=== PATIENT | female | born 1980 | race Hispanic/Latino ===

== ENCOUNTER 2016-11-12 07:13 | Emergency (ER) | payer OTHER ==
[~2016-11-12] VITALS: Ht 165.1 cm; Wt 82.6 kg
[~2016-11-12 07:13] MED LIST: ADVAIR DISKUS 21 DSK INH; ADVAIR DISKUS1 UNIT INH; ALBUTEROL2.5 MG/3 M INH/SOL; AMBIEN (MONOGRAP5 MG PO; ANUSOL-HC25 MG PR; ATHLETE'S FOOT1% TOP; BENTYL20 MG PO; BENZONATATE100 M1 PO; CEPHALEXIN500 M3 PO; CEVIMELINE HCL30 M1 PO; CHLORASEPTI1 LOZ/PAC PO; CYCLOBENZAPRINE10 M1 PO; CYCLOBENZAPRINE10 M3 PO; CYCLOBENZAPRINE10 MG PO; DIAZEPAM10 MG PO; DIAZEPAM5 MG PO; DICYCLOMINE HCL20 MG PO; DILAUDID2 M1 PO; EPIPEN ADULT A0.3 MG IM; FENTANYL TR50 MCG/HR TOP; HYGROTON 25MG T25 MG PO; IBUPROFEN800 M1 PO; LANTUS SOLOS100 U/ML SC; LEVOFLOXACIN500 M1 PO; LIDODERM 5% PAT1 PAT EXT; LIDODERM 5% PAT1 PAT TOP; LINZESS290 MCG PO; MASON NATURAL2000 IU PO; MEDROL DOSEPAK1 PAC PO; METFORMIN ER500 MG; METFORMIN HYDR500 M1 PO; METOCLOPRAMIDE10 MG PO; MIRALAX17 GM PO; MORPHINE SULFAT15 MG PO; MOTRIN800 MG PO; MOVANTIK25 M1 PO; MOVANTIK25 MG PO; MUCINEX ER600 MG PO; NAPROSYN500 M1 PO; NEURONTIN100 MG PO; OXYCODONE HYDRO30 MG PO; PANTOPRAZOLE SO40 MG PO; PERCOCET 325 MG1 TA2 PO; PERCOCET 5-3251 EACH PO; POLYTRIM EYE DR10 ML OPH; PREDNISONE 20MG20 MG PO; PREDNISONE10 M2 PO; PREDNISONE10 MG PO; PROAIR HFA8.5 GM INH; PROCTOFOAM-HC 11 FOA RC; PROMETHAZINE HC25 M3 PO; PROMETHAZINE V118 M2 PO; RELISTOR 112 MG/0.6 SC; ROBITUSSIN W/CO10 ML PO; SEROQUEL 25MG25 MG PO; SINGULAIR10 MG; SPIRIVA 18 MCG18 MCG INH; SUMATRIPTAN SU100 MG PO; TAMIFLU 75MG75 MG PO; TESSALON PERLE100 M1 PO; TESSALON PERLE100 MG PO; TOPAMAX200 M1 PO; TOPAMAX25 MG PO; TRAMADOL HCL50 M1 PO; VENLAFAXINE H37.5 M1 PO; VENLAFAXINE HC150 MG PO; VITAMIN D50000 IU PO; ZOFRAN ODT4 M1 SL; ZOFRAN ODT4 MG PO; ZOFRAN4 M1 PO; ZOFRAN4 M1 SL
--- NOTE | 2016-11-12 07:51 | ED INFLUENZA/URI COMPLAINT ---
History of Present Illness General Chief Complaint: Upper Respiratory Sx/Fever Stated Complaint: URI/LFT EAR PAIN Source: patient Exam Limitations: no limitations Vital Signs & Intake/Output Vital Signs & Intake/Output Vital Signs Date Time Temp Pulse Resp B/P Pulse O2 O2 Flow FiO2 Ox Delivery Rate 11/12 0903 97.4 88 19 112/72 99 Room Air 11/12 0718 97.8 105 18 110/78 97 Room Air Room Air Allergies Coded Allergies: NO KNOWN ALLERGIES (06/15/16) Reconcile Medications Albuterol Sulfate (Accuneb) 3 ML LALITHA RESPIRATORY (Reported) Albuterol Sulfate (Proair Hfa) 0.09 MG/Actuation NISREEN 2 PUFF INH PRN ASTHMA ( Reported) Cevimeline HCl 30 MG CAPSULE 1 CAP PO TID DRY MOUTH (Reported) Chlorthalidone (Hygroton 25MG Tablet) 25 MG TAB 1 TAB PO DAILY WATER PILL ( Reported) Cyclobenzaprine HCl 10 MG TABLET 1 TAB PO QPM PRN MUSCLE SPASM Diazepam 10 MG TAB 1 TAB PO TID MUSCLE SPASMS (Reported) Epinephrine (Epipen 2-Anibal) 0.3 MG KIT 0.3 MG IM AD PRN ANAPHYLAXIS (Reported) ERGOCALCIFEROL (VITAMIN D2) (Vitamin D2) 50,000 UNIT CAPSULE 1 CAP PO QW ARTHRITIS (Reported) Fentanyl (Fentanyl Transdermal System) 50 MCG/HR TDM 1 EVERETT TOP Q72 PAIN ( Reported) Fluticasone-Salmeterol (Advair 500-50 Diskus) 1 UNIT UNIT 1 PUF INH BID ASTHMA (Reported) HYDROCORTISONE/PRAMOXINE (Proctofoam-Hc 1%-1% Foam) 1 %-1 % FOAM 1 A RC TID PRN HEMORRHOIDS Hydromorphone HCl (Dilaudid) 2 MG TABLET 1 TAB PO 4XDP PRN PAIN Linaclotide (Linzess) 290 MCG CAP 1 CAP PO DAILY GI (Reported) Montelukast Sodium (Singulair) (Unknown Strength) TAB (Unknown Dose) UNKNOWN (Reported) Morphine Sulfate 15 MG TAB 1 TAB PO BID PAIN (Reported) Naloxegol Oxalate (Movantik) 25 MG TABLET 1 TAB PO DAILY GI (Reported) Ondansetron (Zofran Odt) 4 MG TAB.RAPDIS 1 TAB SL TID PRN nausea OXYCODONE HCL (Oxycodone Hydrochloride) 30 MG TABLET 1 TAB PO Q6 PRN PAIN ( Reported) Pantoprazole Sodium 40 MG TABLET.DR 1 TAB PO DAILY AC GI (Reported) Polyethylene Glycol 3350 (Miralax) 17 GRAM/DOSE POWDER 1 CAP PO BID PRN CONSTIPATION 1 CAP IN 8 OUNCE GLASS OF WATER/FLUID TWICE A DAY Promethazine HCl 25 MG TABLET 1 TAB PO Q6P PRN NAUSEA Sumatriptan Succinate 100 MG TABLET 1 TAB PO AD PAIN (Reported) may repeat in 2 hours; do not exceed 200 mg in 24 hours Tiotropium [place] (Spiriva) 18 MCG CAP 1 CAP INH DAILY ASTHMA (Reported) Topiramate (Topamax) 200 MG TABLET 1 TAB PO DAILY MIGRAINES (Reported) Tramadol HCl 50 MG TABLET 1 TAB PO BIDP PRN pain Venlafaxine HCl (Venlafaxine HCl ER) 150 MG CAP.ER.24H 1 CAP PO DAILY MENTAL HEALTH (Reported) Zolpidem Tartrate (Ambien) 5 MG TAB 1 TAB PO QPM SLEEP (Reported) Triage Note: TRIAGE: 36 Y/O FEMALE PRESENTS C/O 10/10 HEADACHE, LEFT EAR PAIN - INTERMITTENT SINCE YESTERDAY. ALSO C/O NAUSEA AND DIZZINESS. LAST DOSE MOTRIN (STRENGTH UNKNOWN) AT 0300. "BUT I STILL IN A LOT OF PAIN - IT DON'T GO AWAY." * REMAINS SEATED IN WHEELCHAIR FOR SAFETY. * MASK APPLIED IN TRIAGE FOR SAFETY. Triage Nurses Notes Reviewed? yes : No Patient currently breastfeeds: No HPI: Patient presents for evaluation of a severe left-sided headache that began at about 1:00 this morning. It is a severe constant headache consistent with prior migraines. Patient also states she is having a severe constant sharp left ear pain and left neck pain. Yesterday she had an episode of intermittent chest pains. She has had fever and cough but no phlegm production or nasal congestion. She denies any associated rashes. She tried Motrin yesterday without relief. Her daughter is currently ill with cold like symptoms. She denies any recent travel. She has a past medical history of rheumatoid arthritis, lupus, migraines, fibromyalgias and asthma. Past History Travel History Traveled to [place] past 21 day No Medical History Any Pertinent Medical History? 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 No Review of Systems Review of Systems Constitutional: Reports: no symptoms. EENTM: Reports: see HPI. Respiratory: Reports: no symptoms. Cardiovascular: Reports: no symptoms. GI: Reports: no symptoms. Genitourinary: Reports: no symptoms. Musculoskeletal: Reports: no symptoms. Skin: Reports: no symptoms. Neurological/Psychological: Reports: headache. Hematologic/Endocrine: Reports: no symptoms. Immunologic/Allergic: Reports: no symptoms. All Other Systems: Reviewed and Negative Physical Exam Physical Exam Ears, Nose, Throat: see below Comments: Gen.: Well-nourished, well-developed, no acute respiratory distress. Mild to moderate distress secondary to left headache. Head: Normocephalic, atraumatic. Eyes: Normal inspection bilaterally, PERRLA, EOMI Ears: Normal inspection bilaterally, TMs and canals normal bilaterally Nose: Normal inspection Face: Nontender to percussion Throat/mouth : Moist mucosa , no erythema or exudates Neck: Supple, full range of motion, no goiter Heart: Regular rate and rhythm, no murmurs rubs or gallops Lungs: Clear to auscultation bilaterally with normal air entry Chest: Nontender Back: Normal range of motion Abdomen: Soft, nontender, nondistended, normal bowel sounds Extremities: Normal range of motion grossly, equal radial pulses, no cyanosis clubbing or edema Neurologic: Cranial nerves grossly intact, speech is clear Skin: warm and dry, no rashes or erythema Psychiatric: Calm, cooperative, no apparent delusions or hallucinations Core Measures Severe Sepsis Present: No Septic Shock Present: No Progress Differential Diagnosis: influenza, meningitis, otitis, sinusitis, migraine fibromyalgia Plan of Care: Current Medications Sig/Alma Start time Last Medication Dose Stop Time Status Admin Ketorolac 60 MG ONCE ONE 11/12 814 UNVr Tromethamine 11/12 815 (Toradol) Promethazine HCl 25 MG ONCE ONE 11/12 814 UNVr (Phenergen) 11/12 815 Initial ED EKG: none Comments: 11/12/2016 10:14:58 AM patient stated that she did not receive significant relief after Toradol and Phenergan. The patient currently takes morphine oxycodone and fentanyl patch for her chronic medical conditions. She has been medicated with a dose of oxycodone and is currently asleep. Departure Departure Disposition: HOME OR SELF CARE Condition: Stable Clinical Impression Primary Impression: Migraine headache Qualifiers: Migraine type: chronic without aura Status migrainosus presence: with status migrainosus Intractability: not intractable Qualified Code: G43.701 - Chronic migraine without aura, not intractable, with status migrainosus Secondary Impressions: Otalgia of left ear, Viral syndrome Referrals: ZULLY KRAMER,Wandy ALONZO (PCP/Family) Additional Instructions: Go home and try to get some more sleep as this will likely breakthrough migraine headache. Follow-up with your primary care physician this week for reevaluation and for referral to a neurologist. [id number] cough and cold medication as necessary. Return if any concerns or sudden worsening. Departure Forms: Customer Survey General Discharge Information
[2016-11-12 09:03] VITALS: BP 112/72
== END 2016-11-12 10:24 ==
LOC: ERH 07:13
DX: G43.909 Migraine, unspecified, not intractable, without status migrainosus (principal); H92.02 Otalgia, left ear; B34.9 Viral infection, unspecified
CPT/HCPCS: 96372; J1885; J2550

== ENCOUNTER 2016-11-24 00:16 | Emergency (ER) | payer OTHER ==
[~2016-11-24] VITALS: Ht 175.3 cm; Wt 79.4 kg
--- NOTE | 2016-11-24 01:07 | ED GENERAL ADULT ---
See Addendum History of Present Illness General Chief Complaint: General Adult Stated Complaint: WEAKNESS, headache, dizziness Source: family Exam Limitations: unable to give history, in pain, mumbles Allergies Coded Allergies: NO KNOWN ALLERGIES (06/15/16) Reconcile Medications Albuterol Sulfate (Accuneb) 3 ML LALITHA RESPIRATORY (Reported) Albuterol Sulfate (Proair Hfa) 0.09 MG/Actuation NISREEN 2 PUFF INH PRN ASTHMA ( Reported) Cevimeline HCl 30 MG CAPSULE 1 CAP PO TID DRY MOUTH (Reported) Chlorthalidone (Hygroton 25MG Tablet) 25 MG TAB 1 TAB PO DAILY WATER PILL ( Reported) Cyclobenzaprine HCl 10 MG TABLET 1 TAB PO QPM PRN MUSCLE SPASM Diazepam 10 MG TAB 1 TAB PO TID MUSCLE SPASMS (Reported) Epinephrine (Epipen 2-Anibal) 0.3 MG KIT 0.3 MG IM AD PRN ANAPHYLAXIS (Reported) ERGOCALCIFEROL (VITAMIN D2) (Vitamin D2) 50,000 UNIT CAPSULE 1 CAP PO QW ARTHRITIS (Reported) Fentanyl (Fentanyl Transdermal System) 50 MCG/HR TDM 1 [place] TOP Q72 PAIN ( Reported) Fluticasone-Salmeterol (Advair 500-50 Diskus) 1 UNIT UNIT 1 PUF INH BID ASTHMA (Reported) HYDROCORTISONE/PRAMOXINE (Proctofoam-Hc 1%-1% Foam) 1 %-1 % FOAM 1 A RC TID PRN HEMORRHOIDS Hydromorphone HCl (Dilaudid) 2 MG TABLET 1 TAB PO 4XDP PRN PAIN Linaclotide (Linzess) 290 MCG CAP 1 CAP PO DAILY GI (Reported) Meclizine HCl 25 MG TABLET 1 TAB PO 4 TIMES/DAY PRN DIZZINESS / VERTIGO Montelukast Sodium (Singulair) (Unknown Strength) TAB (Unknown Dose) UNKNOWN (Reported) Morphine Sulfate 15 MG TAB 1 TAB PO BID PAIN (Reported) Naloxegol Oxalate (Movantik) 25 MG TABLET 1 TAB PO DAILY GI (Reported) Ondansetron (Zofran Odt) 4 MG TAB.RAPDIS 1 TAB SL 4 TIMES/DAY PRN NAUSEA Ondansetron (Zofran Odt) 4 MG TAB.RAPDIS 1 TAB SL TID PRN nausea OXYCODONE HCL (Oxycodone Hydrochloride) 30 MG TABLET 1 TAB PO Q6 PRN PAIN ( Reported) Pantoprazole Sodium 40 MG TABLET.DR 1 TAB PO DAILY AC GI (Reported) Polyethylene Glycol 3350 (Miralax) 17 GRAM/DOSE POWDER 1 CAP PO BID PRN CONSTIPATION 1 CAP IN 8 OUNCE GLASS OF WATER/FLUID TWICE A DAY Promethazine HCl 25 MG TABLET 1 TAB PO Q6P PRN NAUSEA Sumatriptan Succinate 100 MG TABLET 1 TAB PO AD PAIN (Reported) may repeat in 2 hours; do not exceed 200 mg in 24 hours Tiotropium [place] (Spiriva) 18 MCG CAP 1 CAP INH DAILY ASTHMA (Reported) Topiramate (Topamax) 200 MG TABLET 1 TAB PO DAILY MIGRAINES (Reported) Tramadol HCl 50 MG TABLET 1 TAB PO BIDP PRN pain Venlafaxine HCl (Venlafaxine HCl ER) 150 MG CAP.ER.24H 1 CAP PO DAILY MENTAL HEALTH (Reported) Zolpidem Tartrate (Ambien) 5 MG TAB 1 TAB PO QPM SLEEP (Reported) Triage Note: PT BIBA FOR SOB, NAUSEA, CHILLS AND GENERAL WEAKNESS. PT ON 2L O2 ON ARRIVAL. HX OF FIBROMYALGIA. PT SLOW TO RESPOND UPON ED ARRIVAL. Triage Nurses Notes Reviewed? yes Onset: Morning Duration: hour(s): Timing: single episode today Severity: severe : No Patient currently breastfeeds: No HPI: Patient is a 36 year old lady who is brought in by ambulance due to sudden onset of severe headache, dizziness, nausea and weakness. Patient is unable to articulate clearly due to pain and dizziness and history is given by her . Symptoms started this morning and subsided during the day but got worsened 1.5 ago before arriving to the ED in the form of dizziness, nausea and severe headache. patient also reported blurry vision and reported seeing stars. dizziness is positional and improved with siting upright and worsened with ling flat. 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 ([facility]) Vital Signs & Intake/Output Vital Signs & Intake/Output Vital Signs Date Time Temp Pulse Resp B/P Pulse O2 O2 Flow FiO2 Ox Delivery Rate 11/24 0537 98.3 100 18 129/83 98 Room Air 11/24 0031 98.4 85 24 129/88 98 Room Air Past History Travel History Traveled to [place] past 21 day No Medical History Any Pertinent Medical History? 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 Yes Sexual History Use of Protection No (DIEGO TOVAR MD) Review of Systems Review of Systems Constitutional: Reports: weakness. Denies: chills, fever. EENTM: Reports: blurred vision, visual changes. Denies: hearing changes. Respiratory: Denies: cough, short of breath. Cardiovascular: Denies: chest pain, palpitations. GI: Reports: abdominal pain, constipation (vague mid abdomen). Genitourinary: Reports: no symptoms. Musculoskeletal: Reports: neck pain. Skin: Reports: no symptoms. Neurological/Psychological: Reports: headache, weakness. Denies: numbness. Hematologic/Endocrine: Reports: no symptoms. (DIEGO TOVAR MD) Review of Systems Constitutional: Reports: no symptoms. EENTM: Reports: no symptoms. Respiratory: Reports: no symptoms. Cardiovascular: Reports: no symptoms. GI: Reports: no symptoms. Genitourinary: Reports: no symptoms. Musculoskeletal: Reports: no symptoms. Skin: Reports: no symptoms. Neurological/Psychological: Reports: no symptoms. Hematologic/Endocrine: Reports: no symptoms. Immunologic/Allergic: Reports: no symptoms. All Other Systems: Reviewed and Negative (ALLA KRAMER,ENRIQUE Enriquez) Physical Exam Physical Exam General Appearance: well developed/nourished, alert, awake, anxious, moderate distress Head: atraumatic, normal appearance Eyes: Bilateral: PERRL, EOMI. Ears, Nose, Throat: normal pharynx, normal ENT inspection Neck: normal inspection, supple, full range of motion Respiratory: normal breath sounds, chest non-tender, quiet respiration, shallow breaths Cardiovascular: regular rate/rhythm Peripheral Pulses: 2+ radial (R), 2+ radial (L) Gastrointestinal: normal bowel sounds, soft, non-tender Back: normal inspection, normal range of motion, no vertebral tenderness Extremities: normal inspection, normal capillary refill, normal range of motion, no edema Neurologic/Psych: no motor/sensory deficits, awake, alert, oriented x 3 Skin: intact Core Measures ACS in differential dx? No CVA/TIA Diagnosis: No Severe Sepsis Present: No Septic Shock Present: No (GUY KRAMER,DIEGO) Progress Differential Diagnoses I considered the following diagnoses in my evaluation of the patient: [attack of migraine headache, benign positinal vertigo, meniere disease, rule out SAH for severe headache] Initial ED EKG: NSR (GUY KRAMER,DIEGO) Plan of Care: Orders Procedure Date/time Status URINALYSIS 11/24 0403 Complete Add-on Test (ER Only) 11/24 0302 Active COMPREHENSIVE METABOLIC PANEL 11/24 0119 Complete TROPONIN LEVEL 11/24 0050 Complete HUMAN BETA HCG SCREEN 11/24 0050 Complete CBC WITHOUT DIFFERENTIAL 11/24 0050 Complete EKG 11/24 0050 Active Current Medications Sig/Alma Start time Last Medication Dose Stop Time Status Admin Sumatriptan Succinate 6 MG ONE ONE 11/24 0500 CAN (Imitrex 6MG Per 11/24 0501 0.5ML Inj) Laboratory Tests 11/24/16 0400: Urinalysis LIGHT H, Urine Color YEL, Urine Clarity CLEAR, Urine pH 7.0, Ur Specific [place] 1.010, Urine Protein NEG, Urine Ketones NEG, Urine Nitrite NEG, Urine Bilirubin NEG, Urine Urobilinogen 0.2, Ur Leukocyte Esterase SMALL H, Ur Microscopic SEDIMENT EXAMINED, Urine WBC 3-5 H, Ur Epithelial Cells FEW, Urine Mucus FEW, Urine Hemoglobin NEG, Urine Glucose NEG 11/24/16 0119: Anion Gap 14, Estimated GFR > 60, BUN/Creatinine Ratio 20.0, Glucose 105 H, Calcium 9.5, Total Bilirubin 0.3, AST 22, ALT 32, Alkaline Phosphatase 94, Troponin I < 0.01, Total Protein 7.9, Albumin 3.9, Globulin 4.0, Albumin/ Globulin Ratio 1.0 L, Total Beta HCG NEGATIVE 11/24/1649: CBC w Diff NO MAN DIFF REQ, RBC 5.08, MCV 82.3, MCH 27.3, RDW 15.2 H, MPV 8.6, Gran % 61.9, Lymphocytes % 31.6, Monocytes % 4.2, Eosinophils % 1.9, Basophils % 0.4, Absolute Granulocytes 6.1, Absolute Lymphocytes 3.1, Absolute Monocytes 0.4 , Absolute Eosinophils 0.2, Absolute Basophils 0, PUBS MCHC 33.2 Diagnostic Imaging: Viewed by Me: CT Scan. Discussed w/RAD: CT Scan. Radiology Impression: head ct... no acute disease... full report below. Comments: PATIENT: SAL CHA PRESENT AGE: 36 PATIENT ACCOUNT NO: [id number] : 80 LOCATION: [facility] ORDERING PHYSICIAN: DIEGO TOVAR MD SERVICE DATE: 11/24/16 EXAM TYPE: CAT - CT HEAD WO IV CONTRAST EXAMINATION: CT HEAD WITHOUT CONTRAST CLINICAL INFORMATION: Rule out space-occupying lesions. COMPARISON: None available at the time of dictation. TECHNIQUE: Contiguous axial imaging was performed from the skull base to vertex without intravenous administration of contrast. FINDINGS: There is streak artifact from a left-sided earring. There is no definite intracranial hemorrhage. No hydrocephalus, extra-axial surface collection, midline shift, or other herniation pattern. Spangler to white matter differentiation is diffusely maintained without evidence of an evolved acute territorial infarct. The basilar cisterns are preserved. No significant soft tissue abnormality. No acute osseous abnormality. The paranasal sinuses and the mastoid air cells are well-aerated. IMPRESSION: No definite acute intracranial findings. Assessment is limited by artifact from a left-sided earring. DICTATED BY: REBECCA BRITT MD DATE/TIME DICTATED:11/24/16324 CASTING ROOM HELPER:JOE DATE/TIME TRANSCRIBED:11/24/16324 CONFIDENTIAL, DO NOT COPY WITHOUT APPROPRIATE AUTHORIZATION. <Electronically signed in Other Vendor System> SIGNED BY: REBECCA BRITT MD 11/24/16 0333 (ALLA KRAMER,ENRIQUE Enriquez) Departure Departure Time of Disposition: 517 Disposition: HOME OR SELF CARE Condition: Stable Clinical Impression Primary Impression: SAH (subarachnoid hemorrhage) Ruled Out Impressions: Migraine aura without headache Referrals: BAHMAN KRAMER,THOMAS (PCP/Family) Departure Forms: Customer Survey General Discharge Information Prescriptions: Current Visit Scripts Meclizine HCl 1 TAB PO 4 TIMES/DAY PRN DIZZINESS / VERTIGO #30 TAB Ref 1 Ondansetron (Zofran Odt) 1 TAB SL 4 TIMES/DAY PRN NAUSEA #30 TAB Ref 1 (GUY KRAMER,DIEGO) Departure Comments 11/24/16, 4:10am... discussed with patient.... she has mild frontal headache. Her nausea and vertigo have resolved. 11/24/16, 5:34am... pt stable for discharge... feeling better after supportive medications. Pt shared also that she ran out of some of her pain medications. Resident Co-Sign Statement Statement: ED Attending supervision documentation- [x] I saw and evaluated the patient. I have also reviewed all the pertinent lab results and diagnostic results. I agree with the findings and the plan of care as documented in the Resident's documentation. [] I have reviewed the ED Record and agree with the Resident's documentation. [] Additions or exceptions (if any) to the Resident's note and plan are summarized below: [] (ALLA KRAMER,ENRIQUE Enriquez) Critical Care Note Critical Care Note Critical Care Time: non-applicable (ALLA KRAMER,ENRIQUE Enriquez)
[2016-11-24 03:08] LABS: ABSOLUTE BASOPHIL COUNT 0 /CUMM (0.0-0.2); ABSOLUTE EOSINOPHIL COUNT 0.2 /CUMM (0.0-0.7); ABSOLUTE GRANULOCYTE CT 6.1 /CUMM (1.4-6.5); ABSOLUTE LYMPH COUNT 3.1 /CUMM (1.2-3.4); ABSOLUTE MONOCYTE COUNT 0.4 /CUMM (0.10-0.60); BASOPHIL % 0.4 % (0.0-2.0); EOSINOPHIL % 1.9 % (0-5); GRANULOCYTE % 61.9 % (42.2-75.2); HEMATOCRIT 41.8 % (37-47); MEAN CORPUSCULAR HGB 27.3 PG (27.0-31.0); MEAN CORPUSCULAR HGB CONC 33.2 G/DL (33.0-37.0); MEAN CORPUSCULAR VOLUME 82.3 FL (81.0-99.0); MEAN PLATELET VOLUME 8.6 FL (7.4-10.4); PLATELET COUNT 326 /CUMM (130-400); RBC DISTRIBUTION WIDTH 15.2 % (11.5-14.5); RED BLOOD CELL CT 5.08 /CUMM (4.20-5.40); WHITE BLOOD CELL COUNT 9.8 /CUMM (4.8-10.8)
--- NOTE | 2016-11-24 03:33 | CT SCAN REPORT ---
EXAMINATION: CT HEAD WITHOUT CONTRAST CLINICAL INFORMATION: Rule out space-occupying lesions. COMPARISON: None available at the time of dictation. TECHNIQUE: Contiguous axial imaging was performed from the skull base to vertex without intravenous administration of contrast. FINDINGS: There is streak artifact from a left-sided earring. There is no definite intracranial hemorrhage. No hydrocephalus, extra-axial surface collection, midline shift, or other herniation pattern. Spangler to white matter differentiation is diffusely maintained without evidence of an evolved acute territorial infarct. The basilar cisterns are preserved. No significant soft tissue abnormality. No acute osseous abnormality. The paranasal sinuses and the mastoid air cells are well-aerated. IMPRESSION: No definite acute intracranial findings. Assessment is limited by artifact from a left-sided earring.
[2016-11-24] MEDS ORDERED: ZOFRAN ODT4 M1 SL (04:58)
[2016-11-24] MEDS ORDERED: MECLIZINE HCL25 MG PO (04:58)
[2016-11-24 05:37] VITALS: BP 129/83
== END 2016-11-24 05:42 ==
LOC: ERH 00:16
PROVIDERS: Ophthalmology
DX: I60.9 Nontraumatic subarachnoid hemorrhage, unspecified (principal); G43.109 Migraine with aura, not intractable, without status migrainosus; R51 Headache
CPT/HCPCS: 81001; 93005; 93010; 96365; 96372; 96375; J1200; J1885; J2405; J2550; J3030

== ENCOUNTER 2017-01-20 07:18 | Emergency (ER) | payer OTHER ==
[~2017-01-20] VITALS: Ht 165.1 cm; Wt 81.6 kg
[~2017-01-20 07:18] MED LIST changes: +MECLIZINE HCL25 MG PO
--- NOTE | 2017-01-20 07:53 | ED GENERAL ADULT ---
See Addendum History of Present Illness General Chief Complaint: General Adult Stated Complaint: R SIDE OF GROIN RADIATING DOWN LEG Source: patient, family Exam Limitations: no limitations Vital Signs & Intake/Output Vital Signs & Intake/Output Vital Signs Date Time Temp Pulse Resp B/P Pulse O2 O2 Flow FiO2 Ox Delivery Rate 01/20 0957 98.7 88 16 120/56 96 Room Air ED Intake and Output 01/21 0000 01/20 1200 Intake Total Output Total Balance Patient 180 lb Weight Allergies Coded Allergies: NO KNOWN ALLERGIES (06/15/16) Reconcile Medications Albuterol Sulfate (Accuneb) 3 ML LALITHA RESPIRATORY (Reported) Albuterol Sulfate (Proair Hfa) 0.09 MG/Actuation NISREEN 2 PUFF INH PRN ASTHMA ( Reported) Cephalexin (Keflex) 500 MG CAPSULE 1 CAP PO BID UTI Cevimeline HCl 30 MG CAPSULE 1 CAP PO TID DRY MOUTH (Reported) Chlorthalidone (Hygroton 25MG Tablet) 25 MG TAB 1 TAB PO DAILY WATER PILL ( Reported) Cyclobenzaprine HCl 10 MG TABLET 1 TAB PO QPM PRN MUSCLE SPASM Diazepam 10 MG TAB 1 TAB PO TID MUSCLE SPASMS (Reported) Epinephrine (Epipen 2-Anibal) 0.3 MG KIT 0.3 MG IM AD PRN ANAPHYLAXIS (Reported) ERGOCALCIFEROL (VITAMIN D2) (Vitamin D2) 50,000 UNIT CAPSULE 1 CAP PO QW ARTHRITIS (Reported) Fentanyl (Fentanyl Transdermal System) 50 MCG/HR TDM 1 [place] TOP Q72 PAIN ( Reported) Fluticasone-Salmeterol (Advair 500-50 Diskus) 1 UNIT UNIT 1 PUF INH BID ASTHMA (Reported) HYDROCORTISONE/PRAMOXINE (Proctofoam-Hc 1%-1% Foam) 1 %-1 % FOAM 1 A RC TID PRN HEMORRHOIDS Hydromorphone HCl (Dilaudid) 2 MG TABLET 1 TAB PO 4XDP PRN PAIN Linaclotide (Linzess) 290 MCG CAP 1 CAP PO DAILY GI (Reported) Meclizine HCl 25 MG TABLET 1 TAB PO 4 TIMES/DAY PRN DIZZINESS / VERTIGO Meloxicam (Mobic) 15 MG TABLET 1 TAB PO DAILY PRN PAIN Montelukast Sodium (Singulair) (Unknown Strength) TAB (Unknown Dose) UNKNOWN (Reported) Morphine Sulfate 15 MG TAB 1 TAB PO BID PAIN (Reported) Naloxegol Oxalate (Movantik) 25 MG TABLET 1 TAB PO DAILY GI (Reported) Ondansetron (Zofran Odt) 4 MG TAB.RAPDIS 1 TAB SL 4 TIMES/DAY PRN NAUSEA Ondansetron (Zofran Odt) 4 MG TAB.RAPDIS 1 TAB SL TID PRN nausea OXYCODONE HCL (Oxycodone Hydrochloride) 30 MG TABLET 1 TAB PO Q6 PRN PAIN ( Reported) Pantoprazole Sodium 40 MG TABLET.DR 1 TAB PO DAILY AC GI (Reported) Polyethylene Glycol 3350 (Miralax) 17 GRAM/DOSE POWDER 1 CAP PO BID PRN CONSTIPATION 1 CAP IN 8 OUNCE GLASS OF WATER/FLUID TWICE A DAY Promethazine HCl 25 MG TABLET 1 TAB PO Q6P PRN NAUSEA Sumatriptan Succinate 100 MG TABLET 1 TAB PO AD PAIN (Reported) may repeat in 2 hours; do not exceed 200 mg in 24 hours Tiotropium [place] (Spiriva) 18 MCG CAP 1 CAP INH DAILY ASTHMA (Reported) Topiramate (Topamax) 200 MG TABLET 1 TAB PO DAILY MIGRAINES (Reported) Tramadol HCl 50 MG TABLET 1 TAB PO BIDP PRN pain Venlafaxine HCl (Venlafaxine HCl ER) 150 MG CAP.ER.24H 1 CAP PO DAILY MENTAL HEALTH (Reported) Zolpidem Tartrate (Ambien) 5 MG TAB 1 TAB PO QPM SLEEP (Reported) Triage Note: C/O PAIN IN RIGHT FLANK THAT RADIATES DOWN RIGHT LEG SINCE LAST NIGHT. PT STATES PAIN IS CONSTANT AND IS TEARFUL IN TRIAGE Triage Nurses Notes Reviewed? yes Onset: Abrupt Duration: hour(s): Timing: recent history : No Patient currently breastfeeds: No HPI: 01/20/17 36-year-old female with history of lupus presents to the emergency Department severe right-sided lumbar pain that radiates down her right leg. the onset of the symptoms were abrupt, the duration was just this morning, the severity is significant as her symptoms required her to come to the emergency department for care. Her abdomen is soft and nontender. She says she's had a prior episode of this in the past. Past History Travel History Traveled to [place] past 21 day No Medical History Any Pertinent Medical History? 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 Other Medical Hx: Fibromylagia, Migraines, ?Lupus History of MRSA: No History of VRE: No History of CDIFF: No Surgical History Surgical History: cholecystectomy, tubal ligation, HEMORRHOIDECTOMY Psychosocial History Who do you live with Family Services at Home None What is your primary language [place] Tobacco Use: Never used ETOH Use: denies use Illicit Drug Use: denies illicit drug use Family History Family History, If Any: FATHER FH: CAD (coronary artery disease) FH: diabetes mellitus MOTHER FH: CAD (coronary artery disease) FH: diabetes mellitus Rheumatoid arthritis uncle FH: lupus erythematosus Hx Contributory? No Review of Systems Review of Systems Constitutional: Denies: fever. EENTM: Denies: visual changes. Respiratory: Denies: short of breath. Cardiovascular: Denies: chest pain. GI: Denies: abdominal pain. Genitourinary: Denies: dysuria. Musculoskeletal: Reports: back pain. Skin: Denies: rash. Neurological/Psychological: Denies: headache. Hematologic/Endocrine: Reports: no symptoms. Physical Exam Physical Exam General Appearance: alert, awake, anxious, moderate distress Head: atraumatic, normal appearance Eyes: Bilateral: normal appearance, PERRL, EOMI. Ears, Nose, Throat: normal pharynx, normal ENT inspection Neck: normal inspection, supple Respiratory: normal breath sounds, chest non-tender, no respiratory distress Cardiovascular: regular rate/rhythm Peripheral Pulses: 4+ radial (R), 4+ radial (L) Gastrointestinal: non-tender Back: decreased range of motion Extremities: no edema Neurologic/Psych: no motor/sensory deficits, awake, alert, oriented x 3 Skin: intact, normal color, warm/dry Comments: the patient has minimal tenderness to the right lumbar area and complains of pain radiating down the right buttocks. no definite CVA. No abdominal tenderness. Core Measures ACS in differential dx? No CVA/TIA Diagnosis: No Severe Sepsis Present: No Septic Shock Present: No Progress Differential Diagnoses I considered the following diagnoses in my evaluation of the patient: [ sciatica , pyelonephritis, renal colic] Plan of Care: Orders Procedure Date/time Status Lab Add-on Test 01/21 0936 Active CULTURE,URINE 01/20 0832 Active Initial ED EKG: none Departure Departure Disposition: HOME OR SELF CARE Condition: Stable Clinical Impression Primary Impression: Sciatica Secondary Impressions: Chronic pain Referrals: THOMAS RUGGIERO MD (PCP/Family) Departure Forms: Customer Survey General Discharge Information Prescriptions: Current Visit Scripts Cephalexin (Keflex) 1 CAP PO BID #20 CAP Meloxicam (Mobic) 1 TAB PO DAILY PRN PAIN #10 TAB Comments the patient was treated with IV Toradol and IV Valium. urinalysis did show some pyuria but with also many epithelial cells. she is empirically treated with Cipro. Mobic for pain. to follow-up with her doctor on Monday. she did have significant relief in the ED. Critical Care Note Critical Care Note Critical Care Time: non-applicable
[2017-01-20 08:50] LABS: ABSOLUTE BASOPHIL COUNT 0 /CUMM (0.0-0.2); ABSOLUTE EOSINOPHIL COUNT 0.2 /CUMM (0.0-0.7); ABSOLUTE GRANULOCYTE CT 4.5 /CUMM (1.4-6.5); ABSOLUTE MONOCYTE COUNT 0.5 /CUMM (0.10-0.60); BASOPHIL % 0.4 % (0.0-2.0); EOSINOPHIL % 2.8 % (0-5); GRANULOCYTE % 54.6 % (42.2-75.2); HEMATOCRIT 39.7 % (37-47); MEAN CORPUSCULAR HGB 27.1 PG (27.0-31.0); MEAN CORPUSCULAR HGB CONC 33.5 G/DL (33.0-37.0); MEAN CORPUSCULAR VOLUME 81.1 FL (81.0-99.0); MEAN PLATELET VOLUME 8.1 FL (7.4-10.4); PLATELET COUNT 296 /CUMM (130-400); RED BLOOD CELL CT 4.89 /CUMM (4.20-5.40); WHITE BLOOD CELL COUNT 8.2 /CUMM (4.8-10.8)
[2017-01-20 09:57] VITALS: BP 120/56
[2017-01-20] MEDS ORDERED: MOBIC15 M1 PO (10:27)
[2017-01-20] MEDS ORDERED: KEFLEX500 M1 PO (10:27)
== END 2017-01-20 10:55 ==
LOC: ERH 07:18
PROVIDERS: Emergency Medicine
DX: M54.41 Lumbago with sciatica, right side (principal); G89.29 Other chronic pain; N39.0 Urinary tract infection, site not specified
CPT/HCPCS: 80307; 81001; 81025; 87086; 96374; 96375; J1885; J3360

== ENCOUNTER 2017-02-21 21:19 | Emergency (ER) | payer OTHER ==
[~2017-02-21] VITALS: Ht 165.1 cm; Wt 81.6 kg
[~2017-02-21 21:19] MED LIST changes: +KEFLEX500 M1 PO; +MOBIC15 M1 PO
--- NOTE | 2017-02-21 22:19 | ED INFLUENZA/URI COMPLAINT ---
History of Present Illness General Chief Complaint: General Adult Stated Complaint: "REALLY BAD COUGH" X ONE WEEK PER Source: patient, family Exam Limitations: no limitations Vital Signs & Intake/Output Vital Signs & Intake/Output Vital Signs Date Time Temp Pulse Resp B/P B/P Pulse O2 O2 Flow FiO2 Mean Ox Delivery Rate 02/21 2330 98.3 79 20 110/70 97 Room Air 02/21 2139 99.2 102 20 94/61 96 Room Air ED Intake and Output 02/22 0000 02/21 1200 Intake Total Output Total Balance Patient 180 lb Weight Weight Reported by Patient Measurement Method Allergies Coded Allergies: NO KNOWN ALLERGIES (06/15/16) Reconcile Medications Albuterol Sulfate (Proair Hfa) 90 MCG HFA.AER.AD 2 PUF INH PRN ASTHMA ( Reported) Albuterol Sulfate 2.5 MG/3 ML (0.083 %) VIAL.NEB 1 Vial INH/LALITHA PRN RESPIRATORY (Reported) Azithromycin 500 MG TABLET 1 TAB PO DAILY ANTIBIOTIC (Reported) Benzonatate 100 MG CAPSULE 1 CAP PO TID COUGH (Reported) Cevimeline HCl 30 MG CAPSULE 1 CAP PO TID DRY MOUTH (Reported) Codeine Phosphate/Guaifenesi (Guaifen-Codeine 100-10 MG/5 Ml) 10 MG-100 MG/5 ML LIQUID 10 ML PO Q6 PRN COUGH Cyclobenzaprine HCl 10 MG TABLET 1 TAB PO TID MUSCLE RELAXER (Reported) Diazepam 10 MG TABLET 1 TAB PO TID MUSCLE RELAXER (Reported) Ergocalciferol (Vitamin D2) (Vitamin D2) 50,000 UNIT CAPSULE 1 CAP PO QTUES SUPPLEMENT (Reported) Esomeprazole (Nexium) 40 MG CAPSULE.DR 1 CAP PO DAILY GI (Reported) Fentanyl 50 MCG/HOUR PATCH.TD72 1 PAT TOP Q3D PAIN (Reported) Fluticasone/Vilanterol (Breo Ellipta 200-25 Mcg INH) 200 MCG-25 MCG/DOSE BLST.W.DEV 1 PUFF INH DAILY RESPIRATORY (Reported) Folic Acid 1 MG TABLET 1 TAB PO DAILY SUPPLEMENT (Reported) Hydromorphone HCl (Dilaudid) 2 MG TABLET 1 TAB PO 4XDP PRN PAIN Linaclotide (Linzess) 290 MCG CAPSULE 1 CAP PO DAILY CONSTIPATION (Reported) Meclizine HCl 25 MG TABLET 1 TAB PO 4 TIMES/DAY PRN DIZZINESS / VERTIGO Meloxicam (Mobic) 15 MG TABLET 1 TAB PO DAILY PRN PAIN Methotrexate 2.5 MG TABLET 1 TAB PO Monday ARTHRITIS (Reported) Methylnaltrexone [place] (Relistor) 12 MG/0.6 ML SYRINGE 12 MG INJ Q2D CONSTIPATION (Reported) Mometasone Furoate (Nasonex) 50 MCG SPRAY.PUMP 1 SPRAY NASB DAILY ALLERGIES ( Reported) Morphine Sulfate 15 MG TABLET 1 TAB PO BID PAIN (Reported) Naloxegol Oxalate (Movantik) 25 MG TABLET 1 TAB PO DAILY GI (Reported) Ondansetron (Zofran Odt) 4 MG TAB.RAPDIS 1 TAB SL 4 TIMES/DAY PRN NAUSEA Ondansetron (Zofran Odt) 4 MG TAB.RAPDIS 1 TAB SL TID PRN nausea Oxycodone HCl 30 MG TABLET 1 TAB PO TID PAIN (Reported) Prednisone 50 MG TABLET 1 TAB PO DAILY STEROID (Reported) Promethazine HCl 25 MG TABLET 1 TAB PO Q6P PRN NAUSEA Quetiapine Fumarate 25 MG TABLET 1 TAB PO QPM SLEEP (Reported) Sumatriptan Succinate 100 MG TABLET 1 TAB PO AD PRN VARGAS (Reported) may repeat in 2 hours; do not exceed 200 mg in 24 hours Topiramate (Topamax) 200 MG TABLET 1 TAB PO DAILY MIGRAINES (Reported) Topiramate 200 MG TABLET 1 TAB PO QPM VARGAS (Reported) Tramadol HCl 50 MG TABLET 1 TAB PO BIDP PRN pain Venlafaxine HCl (Venlafaxine HCl ER) 150 MG CAP.ER.24H 1 CAP PO DAILY MENTAL HEALTH (Reported) Triage Note: PT TO TRIAGE WITH C/O PRODUCTIVE COUGH OF GREEN SPUTUM AND FEVER xWEEK, PT HAS BEEN ON PREDNISONE AND ?COUGH MEDS WITH NO RELIEF OF COUGH. TEMP 99.2 AT THIS TIME. VSS. PT CONSTANTLY COUGHING IN TRIAGE. Triage Nurses Notes Reviewed? yes : No Patient currently breastfeeds: No HPI: Patient is a 36-year-old female presents complaining of severe cough. Cough 1 week. Patient was seen by her primary care doctor on Monday was prescribed prednisone. Patient taking the prednisone with no improvement. Patient was seen at [facility] earlier today and had a chest x-ray and was diagnosed with bronchitis. Patient's prednisone dose was increased and patient was prescribed benzonatate for her cough. No improvement in the cough despite the medications. Cough is severe productive of sputum. Patient has also been using her nebulizer with no improvement. Associated headache and low back pain. (SHADE BAR) Past History Travel History Traveled to [place] past 21 day No Medical History Any Pertinent Medical History? 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 No (SHADE BAR) Review of Systems Review of Systems Constitutional: Denies: chills, fever. EENTM: Reports: no symptoms. Respiratory: Reports: see HPI, cough. Cardiovascular: Denies: chest pain. GI: Denies: abdominal pain. Musculoskeletal: Reports: no symptoms. Skin: Reports: no symptoms. Neurological/Psychological: Reports: headache. Hematologic/Endocrine: Denies: bruising, bleeding. Immunologic/Allergic: Denies: splenectomy. (SHADE BAR) Physical Exam Physical Exam General Appearance: alert, awake Head: atraumatic, normal appearance Eyes: Bilateral: normal appearance, PERRL, EOMI. Ears, Nose, Throat: normal ENT inspection, moist mucous membrane, hearing grossly normal Neck: normal inspection, supple, full range of motion Respiratory: normal breath sounds, no respiratory distress, lungs clear Cardiovascular: regular rate/rhythm Back: normal inspection, normal range of motion Extremities: normal inspection, normal capillary refill, normal range of motion, no edema Neurologic/Psych: no motor/sensory deficits, awake, alert, oriented x 3 Skin: intact, normal color, warm/dry Lymphatic: no anterior cervical augusto Core Measures Severe Sepsis Present: No Septic Shock Present: No (SHADE BAR) Progress Differential Diagnosis: influenza, pneumonia, sinusitis, bronchitis Plan of Care: Orders Procedure Date/time Status Telemetry/Automatic Pilot Mechanic 02/21 2245 Active 2039: No significant improvement with naproxen or robitussin with codeine. Discussed with Dr. Brown regarding nebulized lidocaine. 1mg/kg of lidocaine (80mg) placed in nebulizer. Discussed with patient and her who are agreeable to using nebulized lidocaine. 2319: Cough significantly improved after nebulized lidocaine. Patient continues with headache. No acute neurologic abnormalities on exam. Patient appears stable for discharge and outpatient follow-up. (SHADE BAR) Initial ED EKG: none (SHADE BAR) Departure Departure Time of Disposition: 2323 Disposition: HOME OR SELF CARE Condition: Stable Clinical Impression Primary Impression: Bronchitis with bronchospasm Referrals: BAHMAN KRAMER,THOMAS (PCP/Family) Additional Instructions: Drink plenty fluids and rest. Continue the medications that were prescribed to by [facility]. Follow-up with your primary doctor within 1-2 days for recheck and further evaluation. Departure Forms: Customer Survey General Discharge Information Prescriptions: Current Visit Scripts Codeine Phosphate/Guaifenesi (Guaifen-Codeine 100-10 MG/5 Ml) 10 ML PO Q6 PRN COUGH #100 ML (SHADE BAR) PA/INDUSTRIAL GREEN SYSTEMS DESIGNER Co-Sign Statement Statement: ED Attending supervision documentation- [] I saw and evaluated the patient. I have also reviewed all the pertinent lab results and diagnostic results. I agree with the findings and the plan of care as documented in the PA's/INDUSTRIAL GREEN SYSTEMS DESIGNER's documentation. [X] I have reviewed the ED Record and agree with the PA's/INDUSTRIAL GREEN SYSTEMS DESIGNER's documentation. [] Additions or exceptions (if any) to the PAs/INDUSTRIAL GREEN SYSTEMS DESIGNER's note and plan are summarized below: [] (PHIL KRAMER,MAX Pineda)
[2017-02-21] MEDS ORDERED: PREDNISONE50 M1 PO (23:12)
[2017-02-21] MEDS ORDERED: AZITHROMYCIN500 M3 PO (23:13)
[2017-02-21] MEDS ORDERED: BENZONATATE100 M1 PO (23:13)
[2017-02-21] MEDS ORDERED: RELISTOR12 MG/0.1 INJ (23:13)
[2017-02-21] MEDS ORDERED: VITAMIN D250000 UNIT PO (23:14)
[2017-02-21] MEDS ORDERED: CYCLOBENZAPRINE10 M1 PO (23:14)
[2017-02-21] MEDS ORDERED: QUETIAPINE FUMA25 M1 PO (23:15)
[2017-02-21] MEDS ORDERED: LINZESS290 MC1 PO (23:16)
[2017-02-21] MEDS ORDERED: NEXIUM40 M1 PO (23:16)
[2017-02-21] MEDS ORDERED: METHOTREXATE2.5 M2 PO (23:16)
[2017-02-21] MEDS ORDERED: BREO ELLIPTA 21 EACH INH (23:16)
[2017-02-21] MEDS ORDERED: DIAZEPAM10 M1 PO (23:17)
[2017-02-21] MEDS ORDERED: OXYCODONE HCL30 M1 PO (23:17)
[2017-02-21] MEDS ORDERED: MORPHINE SULFAT15 M4 PO (23:17)
[2017-02-21] MEDS ORDERED: FENTANYL1 EAC3 TOP (23:17)
[2017-02-21] MEDS ORDERED: TOPIRAMATE200 M2 PO (23:18)
[2017-02-21] MEDS ORDERED: NASONEX17 GM NASB (23:18)
[2017-02-21] MEDS ORDERED: SUMATRIPTAN SU100 M1 PO (23:18)
[2017-02-21] MEDS ORDERED: FOLIC ACID1 M1 PO (23:19)
[2017-02-21] MEDS ORDERED: GUAIFEN-CODEIN118 M1 PO (23:26)
[2017-02-21 23:30] VITALS: BP 110/70
== END 2017-02-21 23:37 ==
LOC: ERH 21:19
DX: J40 Bronchitis, not specified as acute or chronic (principal)

== ENCOUNTER 2017-03-15 23:06 | Emergency (ER) | payer OTHER ==
[~2017-03-15] VITALS: Ht 165.1 cm; Wt 82.6 kg
[~2017-03-15 23:06] MED LIST changes: +AZITHROMYCIN500 M3 PO; +BREO ELLIPTA 21 EACH INH; +DIAZEPAM10 M1 PO; +FENTANYL1 EAC3 TOP; +FOLIC ACID1 M1 PO; +GUAIFEN-CODEIN118 M1 PO; +LINZESS290 MC1 PO; +METHOTREXATE2.5 M2 PO; +MORPHINE SULFAT15 M4 PO; +NASONEX17 GM NASB; +NEXIUM40 M1 PO; +OXYCODONE HCL30 M1 PO; +PREDNISONE50 M1 PO; +QUETIAPINE FUMA25 M1 PO; +RELISTOR12 MG/0.1 INJ; +SUMATRIPTAN SU100 M1 PO; +TOPIRAMATE200 M2 PO; +VITAMIN D250000 UNIT PO
--- NOTE | 2017-03-15 23:08 | ED NECK/BACK PAIN COMPLAINT ---
History of Present Illness General Chief Complaint: Lower Extremity Problems Stated Complaint: BACK AND LEGS PAIN Source: patient Exam Limitations: no limitations Vital Signs & Intake/Output Vital Signs & Intake/Output Vital Signs Date Time Temp Pulse Resp B/P B/P Pulse O2 O2 Flow FiO2 Mean Ox Delivery Rate 03/16 0042 98.3 97 18 134/72 98 Room Air 03/16 0041 98 Room Air 03/15 2307 98.3 110 20 138/92 100 Room Air ED Intake and Output 03/16 0000 03/15 1200 Intake Total Output Total Balance Patient 182 lb Weight Weight Reported by Patient Measurement Method Allergies Coded Allergies: NO KNOWN ALLERGIES (06/15/16) Reconcile Medications Albuterol Sulfate (Proair Hfa) 90 MCG HFA.AER.AD 2 PUF INH PRN ASTHMA ( Reported) Albuterol Sulfate 2.5 MG/3 ML (0.083 %) VIAL.NEB 1 Vial INH/LALITHA PRN RESPIRATORY (Reported) Azithromycin 500 MG TABLET 1 TAB PO DAILY ANTIBIOTIC (Reported) Benzonatate 100 MG CAPSULE 1 CAP PO TID COUGH (Reported) Cevimeline HCl 30 MG CAPSULE 1 CAP PO TID DRY MOUTH (Reported) Codeine Phosphate/Guaifenesi (Guaifen-Codeine 100-10 MG/5 Ml) 10 MG-100 MG/5 ML LIQUID 10 ML PO Q6 PRN COUGH Cyclobenzaprine HCl 10 MG TABLET 1 TAB PO TID MUSCLE RELAXER (Reported) Cyclobenzaprine HCl 10 MG TABLET 1 TAB PO 4 TIMES/DAY PRN MUSCLE SPASM Diazepam 10 MG TABLET 1 TAB PO TID MUSCLE RELAXER (Reported) Ergocalciferol (Vitamin D2) (Vitamin D2) 50,000 UNIT CAPSULE 1 CAP PO QTUES SUPPLEMENT (Reported) Esomeprazole (Nexium) 40 MG CAPSULE.DR 1 CAP PO DAILY GI (Reported) Fentanyl 50 MCG/HOUR PATCH.TD72 1 PAT TOP Q3D PAIN (Reported) Fluticasone/Vilanterol (Breo Ellipta 200-25 Mcg INH) 200 MCG-25 MCG/DOSE BLST.W.DEV 1 PUFF INH DAILY RESPIRATORY (Reported) Folic Acid 1 MG TABLET 1 TAB PO DAILY SUPPLEMENT (Reported) Hydromorphone HCl (Dilaudid) 2 MG TABLET 1 TAB PO 4XDP PRN PAIN Ibuprofen 800 MG TABLET 1 TAB PO TID BACK PAIN Linaclotide (Linzess) 290 MCG CAPSULE 1 CAP PO DAILY CONSTIPATION (Reported) Meclizine HCl 25 MG TABLET 1 TAB PO 4 TIMES/DAY PRN DIZZINESS / VERTIGO Meloxicam (Mobic) 15 MG TABLET 1 TAB PO DAILY PRN PAIN Methotrexate 2.5 MG TABLET 1 TAB PO Monday ARTHRITIS (Reported) Methylnaltrexone [place] (Relistor) 12 MG/0.6 ML SYRINGE 12 MG INJ Q2D CONSTIPATION (Reported) Mometasone Furoate (Nasonex) 50 MCG SPRAY.PUMP 1 SPRAY NASB DAILY ALLERGIES ( Reported) Morphine Sulfate 15 MG TABLET 1 TAB PO BID PAIN (Reported) Naloxegol Oxalate (Movantik) 25 MG TABLET 1 TAB PO DAILY GI (Reported) Ondansetron (Zofran Odt) 4 MG TAB.RAPDIS 1 TAB SL 4 TIMES/DAY PRN NAUSEA Ondansetron (Zofran Odt) 4 MG TAB.RAPDIS 1 TAB SL TID PRN nausea Oxycodone HCl 30 MG TABLET 1 TAB PO TID PAIN (Reported) Oxycodone HCl/Acetaminophen (Percocet 5-325 MG Tablet) 5 MG-325 MG TABLET 1 TAB PO 4XDP PRN PAIN SIX...[id number] Prednisone 50 MG TABLET 1 TAB PO DAILY STEROID (Reported) Promethazine HCl 25 MG TABLET 1 TAB PO Q6P PRN NAUSEA Quetiapine Fumarate 25 MG TABLET 1 TAB PO QPM SLEEP (Reported) Sumatriptan Succinate 100 MG TABLET 1 TAB PO AD PRN VARGAS (Reported) may repeat in 2 hours; do not exceed 200 mg in 24 hours Topiramate (Topamax) 200 MG TABLET 1 TAB PO DAILY MIGRAINES (Reported) Topiramate 200 MG TABLET 1 TAB PO QPM VARGAS (Reported) Tramadol HCl 50 MG TABLET 1 TAB PO BIDP PRN pain Venlafaxine HCl (Venlafaxine HCl ER) 150 MG CAP.ER.24H 1 CAP PO DAILY MENTAL HEALTH (Reported) Triage Nurses Notes Reviewed? yes Onset: Gradual Duration: minute(s): Timing: single episode today Quality/Severity: moderate Location: T-spine, lumbar spine, on right side Radiation: buttocks Context: turning/bending Method of Injury: unknown Loss of Consciousness: no loss of consciousness Modifying Factors: movement Associated Symptoms: muscle spasm HPI: 36-year-old female presents with right sided mid thoracic and lower lumbar musculoskeletal type pain. She is uncertain of what caused the pain. She states, "it happened all of a sudden just a few minutes ago." She denies fall, trauma, injury. She states the pain radiates into her right buttock. She is able to ambulate. She has no numbness or weakness. She is otherwise well. Past History Travel History Traveled to [place] past 21 day No Medical History Any Pertinent Medical History? 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 No Review of Systems Review of Systems Constitutional: Reports: no symptoms. Eyes: Reports: no symptoms. Ears, Nose, Throat, Mouth: Reports: no symptoms. Respiratory: Reports: no symptoms. Cardiovascular: Reports: no symptoms. Gastrointestinal/Abdominal: Reports: no symptoms. Musculoskeletal: Reports: no symptoms. Skin: Reports: no symptoms. Neurological/Psychological: Reports: no symptoms. All Other Systems: Reviewed and Negative Physical Exam Physical Exam General Appearance: well developed/nourished, mild distress Head: atraumatic Eyes: Bilateral: PERRL, EOMI. Ears, Nose, Throat, Mouth: hearing grossly normal Neck: normal inspection, supple, full range of motion, normal alignment Respiratory: normal breath sounds Cardiovascular: regular rate/rhythm Gastrointestinal: soft, non-tender Back: normal inspection, muscle spasm, no vertebral tenderness Extremities: normal range of motion Neurologic/Psych: awake, alert, oriented x 3, normal mood/affect Skin: intact, normal color, warm/dry Comments: Normal strength, light touch, deep tendon reflexes, and bilateral lower extremities. Negative straight leg test bilaterally. Progress Differential Diagnosis: muscle spasm versus chronic pain versus other Plan of Care: Patient given Toradol, Flexeril and one Percocet. Patient feeling better and feels ready for discharge. Departure Departure Disposition: HOME OR SELF CARE Condition: Stable Clinical Impression Primary Impression: Back pain Referrals: BAHMAN KRAMER,THOMAS (PCP/Family) Departure Forms: Customer Survey General Discharge Information Prescriptions: Current Visit Scripts Oxycodone HCl/Acetaminophen (Percocet 5-325 MG Tablet) 1 TAB PO 4XDP PRN PAIN #6 TAB SIX...[id number] Ibuprofen 1 TAB PO TID #60 TAB Cyclobenzaprine HCl 1 TAB PO 4 TIMES/DAY PRN MUSCLE SPASM #30 TAB Ref 1
[2017-03-16] MEDS ORDERED: CYCLOBENZAPRINE10 M1 PO (00:33)
[2017-03-16] MEDS ORDERED: IBUPROFEN800 M1 PO (00:33)
[2017-03-16] MEDS ORDERED: PERCOCET 5-3251 EACH PO (00:33)
[2017-03-16 00:42] VITALS: BP 134/72
== END 2017-03-16 00:42 ==
LOC: ERH 23:06
DX: M54.5 Low back pain (principal)
CPT/HCPCS: 96372; J1885

== ENCOUNTER 2018-06-28 17:52 | Emergency (ER) | payer OTHER ==
[~2018-06-28] VITALS: Ht 165.1 cm; Wt 86.6 kg
[~2018-06-28 17:52] MED LIST changes: +BREO ELLIPTA 21 EACH; +ESGIC CAPSULE1 EACH PO; +MACROBID 100 M100 MG PO; +PYRIDIUM200 M1 PO; +TRAZODONE HCL50 M1 PO; +ULTRAM50 M1 PO; +VIRTUSSIN AC L118 M1
[2018-06-28 19:02] LABS: ABSOLUTE BASOPHIL COUNT 0 /CUMM (0.0-0.2); ABSOLUTE EOSINOPHIL COUNT 0.1 /CUMM (0.0-0.7); ABSOLUTE GRANULOCYTE CT 4.5 /CUMM (1.4-6.5); ABSOLUTE LYMPH COUNT 3.1 /CUMM (1.2-3.4); ABSOLUTE MONOCYTE COUNT 0.3 /CUMM (0.10-0.60); BASOPHIL % 0.5 % (0.0-2.0); EOSINOPHIL % 1.1 % (0-5); GRANULOCYTE % 56.5 % (42.2-75.2); HEMATOCRIT 42.6 % (37-47); MEAN CORPUSCULAR HGB 27.3 PG (27.0-31.0); MEAN CORPUSCULAR HGB CONC 33.9 G/DL (33.0-37.0); MEAN CORPUSCULAR VOLUME 80.6 FL (81.0-99.0); MEAN PLATELET VOLUME 9.2 FL (7.4-10.4); PLATELET COUNT 408 /CUMM (130-400); RED BLOOD CELL CT 5.28 /CUMM (4.20-5.40)
--- NOTE | 2018-06-28 20:36 | RADIOLOGY REPORT ---
EXAMINATION: XR CHEST CLINICAL INFORMATION: Chest pain. COMPARISON: Chest x-ray 02/17/2016 TECHNIQUE: 2 views of the chest were obtained. FINDINGS: No significant abnormality is noted involving the heart, lungs, mediastinum, bony thorax or soft tissues. IMPRESSION: Unremarkable examination.
[2018-06-28] MEDS ORDERED: DIAZEPAM5 M1 PO (21:32)
[2018-06-28] MEDS ORDERED: FENTANYL1 EAC7 TOP (21:33)
[2018-06-28] MEDS ORDERED: TOPAMAX100 M1 PO (21:34)
[2018-06-28] MEDS ORDERED: BACLOFEN10 M1 PO (21:35)
--- NOTE | 2018-06-28 22:06 | CT SCAN REPORT ---
EXAMINATION: CT ANGIOGRAM OF THE CHEST WITH AND WITHOUT CONTRAST (CT PULMONARY ANGIOGRAM FOR PE) CLINICAL INFORMATION: Right chest pain. History of lupus. COMPARISON: 02/25/2016 TECHNIQUE: Prior to contrast administration, noncontrast localization images were obtained. Subsequently, multidetector volumetric imaging was performed from the thoracic inlet to below the diaphragms following the administration of 95mL Optiray 320 intravenous contrast. No contrast reaction reported. Sagittal, coronal, and MIP oblique sagittal reformatted images were obtained on the CT workstation, uploaded to PACS, and reviewed. Total exam dose-length product 741.44 mGy-cm. FINDINGS: QUALITY OF STUDY/CONTRAST BOLUS: Satisfactory PULMONARY ARTERIES: No central or segmental pulmonary emboli. THORACIC AORTA: No aneurysm or dissection. LUNG: No focal consolidation, nodules or masses. PLEURA: No pleural effusion or pneumothorax. MEDIASTINUM: Normal heart size. No pericardial effusion. No hilar or mediastinal lymphadenopathy. No evidence of septal bowing or right heart strain. CHEST WALL/AXILLA: No axillary or internal mammary lymphadenopathy. OSSEOUS STRUCTURES: No acute or suspicious osseous abnormality. UPPER ABDOMEN: Cholecystectomy. No reflux of contrast into the hepatic veins to suggest elevated right heart pressures. IMPRESSION: No evidence of pulmonary embolism or other acute intrathoracic abnormality. VTE: negative
[2018-06-28] MEDS ORDERED: CYCLOBENZAPRINE10 M1 PO (22:18)
--- NOTE | 2018-06-28 22:18 | ED CARDIAC/CP/PALPITATIONS ---
History of Present Illness General Chief Complaint: Dyspnea (COPD, CHF, Other) Stated Complaint: BIBA DIZZINESS, SOB Source: patient, family, old records Exam Limitations: no limitations Vital Signs & Intake/Output Vital Signs & Intake/Output Vital Signs Date Time Temp Pulse Resp B/P B/P Pulse O2 O2 Flow FiO2 Mean Ox Delivery Rate 06/282 98.0 75 18 100/61 97 06/28 1840 26 95 Nasal 1.0L Cannula 06/28 1833 Nasal 1.0L Cannula 06/28 1759 97.5 84 28 109/55 100 Nasal 3.0L Cannula Allergies Coded Allergies: hydroxychloroquine (HIVES 06/28/18) Reconcile Medications Albuterol Sulfate (Proair Hfa) 90 MCG HFA.AER.AD 2 PUF INH PRN ASTHMA ( Reported) Albuterol Sulfate 2.5 MG/3 ML (0.083 %) VIAL.NEB 1 Vial INH/LALITHA PRN RESPIRATORY (Reported) Baclofen 10 MG TABLET 1 TAB PO TID MUSCLE SPASMS (Reported) Cyclobenzaprine HCl 10 MG TABLET 1 TAB PO TID PRN muscle stain Diazepam 5 MG TABLET 1 TAB PO BID MUSCLE RELAXER (Reported) Ergocalciferol (Vitamin D2) (Vitamin D2) 50,000 UNIT CAPSULE 1 CAP PO QTUES SUPPLEMENT (Reported) Esomeprazole (Nexium) 40 MG CAPSULE.DR 1 CAP PO DAILY GI (Reported) Fentanyl 37.5 MCG/HOUR PATCH.TD72 1 PAT TOP Q3D PAIN (Reported) Hydromorphone HCl (Dilaudid) 2 MG TABLET 1-2 TAB PO Q6H PRN pain Linaclotide (Linzess) 290 MCG CAPSULE 1 CAP PO DAILY CONSTIPATION (Reported) Methylnaltrexone [place] (Relistor) 12 MG/0.6 ML SYRINGE 12 MG INJ Q2D CONSTIPATION (Reported) Mometasone Furoate (Nasonex) 50 MCG SPRAY.PUMP 1 SPRAY NASB DAILY ALLERGIES ( Reported) Oxycodone HCl 30 MG TABLET 1 TAB PO TID PAIN (Reported) Quetiapine Fumarate 25 MG TABLET 1 TAB PO QPM SLEEP (Reported) Sumatriptan Succinate 100 MG TABLET 1 TAB PO AD PRN VARGAS (Reported) may repeat in 2 hours; do not exceed 200 mg in 24 hours Topiramate (Topamax) 100 MG TABLET 1 TAB PO QPM VARGAS (Reported) Venlafaxine HCl (Venlafaxine HCl ER) 150 MG CAP.ER.24H 1 CAP PO DAILY MENTAL HEALTH (Reported) Triage Note: PT BIBA FROM WALK-IN CLINIC S/P SOB SINCE THIS AM. HX OF ASTHMA. NO EFFECT FROM DUONEB IN CLINIC. O2 SAT 100% 3L VIA NC. PT TACHYPNEIC ON ARRIVAL. ALSO C/O BURNING PAIN ACROSS CHEST. Triage Nurses Notes Reviewed? yes Onset: Morning Duration: hour(s):, constant, continues in ED Timing: recent history Quality/Severity: moderate, severe, burning Location: central Radiation: no radiation Activities at Onset: rest Prior Chest Pain/Card Workup: non-cardiac Nitro Today/Relief: no nitro taken today Aspirin Today: no aspirin today Associated Symptoms: dizziness, shortness of breath, weakness LMP (ages 10-50): unknown : No Patient currently breastfeeds: No HPI: The morning prior to admission patient complains of constant substernal chest burning moderate in severity associated with nausea shortness of breath. She denies fever chills vomiting diarrhea headache dysuria rash bleeding. Past History Travel History Traveled to [place] past 21 day No Medical History Any Pertinent Medical History? 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 No Review of Systems Review of Systems Constitutional: Reports: no symptoms. EENTM: Reports: no symptoms. Respiratory: Reports: see HPI, short of breath. Cardiovascular: Reports: see HPI, chest pain. GI: Reports: see HPI, nausea. Genitourinary: Reports: no symptoms. Musculoskeletal: Reports: no symptoms. Skin: Reports: no symptoms. Neurological/Psychological: Reports: no symptoms. Hematologic/Endocrine: Reports: no symptoms. Immunologic/Allergic: Reports: no symptoms. All Other Systems: Reviewed and Negative Physical Exam Physical Exam General Appearance: well developed/nourished, alert, awake, anxious, moderate distress, obese Head: atraumatic, normal appearance Eyes: Bilateral: normal appearance, PERRL, EOMI. Ears, Nose, Throat: normal pharynx, normal ENT inspection, hearing grossly normal Neck: normal inspection, supple, full range of motion, no midline tenderness Respiratory: normal breath sounds, chest non-tender, no respiratory distress, quiet respiration, lungs clear Cardiovascular: regular rate/rhythm, normal peripheral pulses, norml femoral pulses equa Peripheral Pulses: 4+ carotid (R), 4+ carotid (L) Gastrointestinal: normal bowel sounds, soft, non-tender, no organomegaly Back: normal inspection, normal range of motion, no vertebral tenderness Extremities: normal inspection, normal capillary refill, normal range of motion, no edema Neurologic/Psych: no motor/sensory deficits, awake, alert, oriented x 3, normal gait, normal mood/affect, laboratory inspector II-XII nml as tested Reflexes: 2+: bicep (R), bicep (L). Skin: intact, normal color, warm/dry Lymphatic: no anterior cervical augusto Core Measures ACS in differential dx? No CVA/TIA Diagnosis No Sepsis Present: No Sepsis Focused Exam Completed? No Progress Differential Diagnosis: costochondritis, hyperkalemia, hypovolemia, pneumonia, pulmonary embolism Plan of Care: Orders Procedure Date/time Status Add-on Test (ER Only) 06/28 1933 Active Add-on Test (ER Only) 06/28 1927 Active TROPONIN LEVEL 06/28 1828 Complete CBC WITHOUT DIFFERENTIAL 06/28 1828 Complete BASIC METABOLIC PANEL 06/28 1828 Complete LIPASE 06/28 182 Complete HUMAN BETA HCG SCREEN 06/28 182 Complete D-DIMER 06/28 182 Complete EKG 06/28 1754 Active Laboratory Tests 06/28/18 1825: Anion Gap 13, Estimated GFR > 60, BUN/Creatinine Ratio 14.3, Glucose 117 H, Calcium 10.6 H, Troponin I < 0.01, Lipase 54, Total Beta HCG NEGATIVE, D-Dimer High Sensitivty 436 H, CBC w Diff NO MAN DIFF REQ, RBC 5.28, MCV 80.6 L, MCH 27.3, MCHC 33.9, RDW 15.0 H, MPV 9.2, Gran % 56.5, Lymphocytes % 38.4, Monocytes % 3.5, Eosinophils % 1.1, Basophils % 0.5, Absolute Granulocytes 4.5, Absolute Lymphocytes 3.1, Absolute Monocytes 0.3, Absolute Eosinophils 0.1, Absolute Basophils 0 Diagnostic Imaging: Viewed by Me: Radiology Read, CT Scan. Discussed w/RAD: Radiology Read, CT Scan. Radiology Impression: No evidence of pulmonary embolism or other acute intrathoracic abnormality. VTE: negative CXR Impression: no acute abnormality, no infiltrates, normal size heart, normal mediastinum Initial ED EKG: normal axis, normal intervals, normal p-waves, normal QRS complex, normal sinus rhythm, no ST T wave changes Prior EKG: unchanged Rhythm Strip: normal sinus rhythm Departure Departure Time of Disposition: 2215 Disposition: HOME OR SELF CARE Condition: Stable Clinical Impression Primary Impression: Chest pain syndrome Secondary Impressions: History of lupus Referrals: Unknown (PCP/Family) Departure Forms: Customer Survey General Discharge Information Prescriptions: Current Visit Scripts Cyclobenzaprine HCl 1 TAB PO TID PRN muscle stain #30 TAB Hydromorphone HCl (Dilaudid) 1-2 TAB PO Q6H PRN pain #20 TAB Critical Care Note Critical Care Note Critical Care Time: non-applicable
[2018-06-28] MEDS ORDERED: DILAUDID2 M1 PO (22:20)
[2018-06-28 22:22] VITALS: BP 100/61
== END 2018-06-28 22:24 ==
LOC: ERH 17:52
PROVIDERS: Emergency Medicine
DX: R07.89 Other chest pain (principal); L93.0 Discoid lupus erythematosus
CPT/HCPCS: 71046; 93005; 93010; 96374; 96375; J1885